=== PATIENT | male | born 1995 | race Caucasian/White ===

== ENCOUNTER 2023-04-27 02:37 | Emergency (ER) | payer MEDICAID ==
[~2023-04-27] VITALS: Ht 172.7 cm; Wt 78.0 kg
[2023-04-27 02:40] VITALS: O2SAT 97
[2023-04-27] MEDS ORDERED: LIDOCAINE HCL 1% 20ML VIAL (Pyxis) INJ INFIL ONE (07:30)
[2023-04-27] MEDS ORDERED: IBUPROFEN 400MG TABLET PO ONE (09:15)
[2023-04-27 09:35] VITALS: BP 124/76; PULSE 87; RESP 20; TEMP 98.1
== END 2023-04-27 09:36 | disposition home or self-care (01) ==
LOC: ER 02:37
DX: S01.511A Laceration without foreign body of lip, initial encounter (principal); Y08.89XA Assault by other specified means, initial encounter; Y93.89 Activity, other specified; Y92.89 Other specified places as the place of occurrence of the external cause; Y99.8 Other external cause status
CPT/HCPCS: 12052; 99284; J3490; Z7610

== ENCOUNTER 2023-05-04 11:24 | Emergency (ER) | payer MEDICAID ==
[~2023-05-04] VITALS: Ht 177.8 cm; Wt 77.0 kg
[2023-05-04 11:32] VITALS: O2SAT 99
[2023-05-04] MEDS ORDERED: BO1 TP (12:13)
[2023-05-04 12:55] VITALS: BP 127/86; PULSE 80; RESP 16; TEMP 98.9
== END 2023-05-04 12:56 | disposition home or self-care (01) ==
LOC: ER 11:32
DX: S01.511D Laceration without foreign body of lip, subsequent encounter (principal); X58.XXXD Exposure to other specified factors, subsequent encounter
CPT/HCPCS: 99282; Z7610